=== PATIENT | male | born 1985 | race Two or more races ===

== ENCOUNTER 2018-10-25 11:04 | Emergency (ER) | payer MEDICAID ==
[2018-10-25] MEDS ORDERED: methylPREDNISolone SS 40 mg Vial IVP ONE (11:30)
--- NOTE | 2018-10-30 18:06 | ER Physician Documentation ---
DATE OF SERVICE: 10/25/2018 CHIEF COMPLAINT: Right thumb pain. HISTORY OF PRESENT ILLNESS: The patient presents with right thumb pain and swelling that he has had since 10/20/2018. He went to [facility] and was given multiple prescriptions that he did not know the name of and we were forced to call the pharmacy to find out what prescriptions are written for him. He was written for tramadol pain medicine as well as Keflex and Bactrim. He did not take any of these pills and he said that he was not given IV antibiotics. He says at this time that his pain is an 8/10 throbbing pain in his right thumb. It radiates to wrist. X-ray was done at [facility] and was read as negative. I personally called for help to make sure it was negative. PAST MEDICAL HISTORY: Unremarkable. PAST SURGICAL HISTORY: Unremarkable. REVIEW OF SYSTEMS: Positive for right thumb pain and swelling and redness with no evidence of injury. Negative for fevers, chills, nausea, vomiting, diarrhea or constipation. PHYSICAL EXAMINATION: GENERAL: The patient has a right thumb cellulitis with absolutely no evidence of tenosynovitis, no foreign body, no crepitance, no lymphangitis and no lymphadenopathy. LUNGS: Clear to auscultation bilaterally. COR: Regular rate and rhythm. NEUROLOGIC: Nonfocal. MEDICAL DECISION MAKING: The patient has absolutely no signs of flesh eating bacteria. X-ray was read negative at [facility] as previously dictated. The patient received 1 gram of IV vancomycin as well as 62.5 mg premedication with Medrol had a time to prevent red-man syndrome. He was given Toradol 30 mg IV as well. He was told to take both the Bactrim and Keflex. He was given a work note. He was given a sling, so that he would rest the hand and I told him to put ice packs to the outside of the skin, but not directly on the skin, but through a wash cloth. ASSESSMENT/PLAN: Right thumb cellulitis. No evidence of tenosynovitis or lymphangitis. He is to follow up tomorrow for another wound check. JOB# [id number] [facility] [place]
== END 2018-10-25 14:02 | disposition home or self-care (01) ==
LOC: ER 11:04
DX: L03.011 Cellulitis of right finger (principal)
CPT/HCPCS: 99283; 96374; 96375; J1885; J3370; J2930; Z7502